=== PATIENT | male | born 1995 | race Two or more races ===

== ENCOUNTER 2020-08-04 07:50 | Outpatient (REF) | payer OTHER, SELFPAY ==
[2020-08-04 09:18] LABS: COVID-19 Test Negative (Negative); IDNOW Serial# 55D5AD1C
== END 2020-08-04 07:51 | disposition home or self-care (01) ==
LOC: HO.EMPCOV 07:50
PROVIDERS: PCP Internal Medicine; Visit Provider Internal Medicine
DX: Z20.828 Contact with and (suspected) exposure to other viral communicable diseases (principal)
CPT/HCPCS: 87635; C9803

== ENCOUNTER 2022-05-17 15:23 | Emergency (ER) | payer OTHER, SELFPAY ==
--- NOTE | ~2022-05-17 | XR_ITS ---
EXAMINATION: XR HAND, LEFT CLINICAL INFORMATION: Fourth/fifth finger crush injury COMPARISON: None TECHNIQUE: PA, lateral, and oblique views of the left hand. FINDINGS: Bones are normal anatomic alignment. I do not appreciate any displaced fracture seen. On the lateral view there is a suggestion of a tiny lucency possibly due to a prominent nutrient foramen along the dorsal basilar aspect of the fourth distal phalanx. This does not have the typical appearance of fracture. Incidental mild ulnar negative variance of the wrist. XR/XR hand LT min 3V IMPRESSION: No displaced fracture seen. Subtle lucency along the dorsal base of the fifth distal phalanx on the lateral film but this does not have the typical appearance for fracture. Clinical correlation for point tenderness in this region would be recommended.
[2022-05-17 16:51] VITALS: BP 114/62; PULSE 74; RESP 14; TEMP 36.3; O2SAT 99; BMI 19.5
--- NOTE | 2022-05-17 17:38 | ED_ITS ---
HPI - Extremity Problem General Chief complaint: Extremity Injury, Upper Stated complaint: left pinky finger swelling and bruised Time Seen by Provider: 05/17/22 17:32 Source: patient Mode of arrival: ambulatory Limitations: no limitations History of Present Illness HPI Narrative: 27 yo male right hand dominant here with left fifth finger pain swelling, redness after injury yesterday. He tells me he slammed his finger in a door. Related Data Previous Rx's Medication Instructions Recorded cephalexin 500 mg capsule 500 mg PO BID #14 caps 05/17/22 ibuprofen 600 mg tablet 600 mg PO Q6H PRN pain #20 tabs 05/17/22 Allergies Allergy/AdvReac Type Severity Reaction Status Date / Time No Known Allergies Allergy Unverified 05/22/20 16:51 [No Known Allergies*] Review of Systems Review of Systems: Yes all other systems are reviewed and are negative Constitutional: Constitutional: Reports no additional constitutional complaints, Denies body ache(s), Denies chills, Denies fever(s), Denies headache(s) and Denies weakness Eyes: Eyes: Reports no additional eye complaints and Denies change in vision ENT: Reports system reviewed and no additional complaints, except as documented, Denies dizziness, Denies headache(s), Denies nasal congestion, Denies nasal discharge and Denies neck pain Cardiovascular: Cardiovascular: Reports no additional cardiovascular complaints, Denies chest pain, Denies leg edema and Denies dyspnea Respiratory: Respiratory: Reports no additional respiratory complaints, Denies cough and Denies dyspnea Gastrointestinal: Gastrointestinal: Reports no additional gastrointestinal complaints, Denies abdominal pain, Denies diarrhea, Denies nausea and Denies vomiting Genitourinary: Genitourinary: Denies urinary incontinence Musculoskeletal: Musculoskeletal: Reports no additional musculoskeletal comp laints, Denies back pain, Reports arthralgias, Reports joint swelling, Reports limited range of motion, Denies neck pain, Denies numbness and Denies tingling Integumentary/Breasts: Skin/Breast: Reports system reviewed and no additional complaints, except as docu, Reports swelling, Reports erythema and Denies rash Neurologic: Reports system reviewed and no additional complaints, except as documented, Denies Abnormal speech present, Denies dizziness, Denies headache(s), Denies numbness, Denies tingling and Denies weakness FOR[facility]LY [facility] Past Medical History Attestation statement: The following information was validated with the patient. Source: old records reviewed and nursing notes reviewed Social History Social History Advance Directives: No Advance Directives Information Provided: No Physical Exam Vital Signs: Vital Signs: Last Vital Signs Temp 97.4 F 05/17/22 16:51 Pulse 74 05/17/22 16:51 Resp 14 05/17/22 16:51 BP 114/62 05/17/22 16:51 Pulse Ox 99 05/17/22 16:51 O2 Del Method 05/17/22 16:51 BMI result Body Mass Index 19.5 Const: General: cooperative, healthy appearing, comfortable and no acute distress Orientation/consciousness: patient oriented x3 Limitations: no limitations HEENT: Head: Yes normal to inspection Ears: hearing grossly normal bilaterally General nose exam: Normal external nose present Face and sinus: Yes normal facial exam Mouth: Normal oral and palatal mucosa present Throat: Yes posterior oropharynx normal Eyes: General: appearance normal, both eyes and all related structures Pupils: Equal, round and reactive pupils present Neck: Neck: Yes normal visual inspection Chest: Chest palpation & inspection: normal inspection of the chest Resp: Effort & Inspection: normal respiratory effort Auscultation: clear to auscultation bilaterally Cardio: Rate: regular rate Rhythm: regular rhythm Peripheral pulses: Peripheral pulses 2+ throughout GI: Inspection: Yes normal to inspection Palpation (GI): Soft to palpation and nontender Auscultation: normal bowel sounds Back/Spine/Pelvis: Thoracic/Lumbar Spine: thoracic and lumbar spine normal to inspection Skin: General skin exam: no rashes or lesions noted Neuro: General: patient oriented x3, no focal motor deficits and normal sensation to monofilament Cranial nerves: Yes Equal, round and reactive pupils present Cognition (Neuro): normal cognition Speech: No Abnormal speech present Gait exam (Neuro): Normal gait present Motor exam (neuro): 5/5 motor strength present throughout Extrem: Other: To the left hand fifth digit there is a subungal hematoma to the nailbed. There is an abrasion over the proximal nailbed with local erythema, swelling and tenderness. FROM Course Course Course Narrative: Left hand 5th digit crush injury with pain, swelling, redness There is a subungal hematoma however this is >24 hrs from injury so trephination not likely helpful. There is also an abrasion with local redness, swelling likely paronychia. Will start cephelexin X-rays shows ?Subtle lucency along the dorsal base of the fifth distal phalanx on the lateral film but this does not have the typical appearance for fracture. Clinical correlation for point tenderness in this region would be recommended. +point tenderness so ? small avulsion fx. Motrin/tylenol at home for pain. Reviewed worrisome signs symptoms of when to return to the emergency room. Comfortable discharge home. MDM - Extremity (Nontraumatic) Medical Records Attestation: I reviewed the patient's medical records. Lab Data Attestation: I reviewed the patient's lab results. Imaging Data left hand xray: Attestation: I personally reviewed and interpreted this imaging study as follows: Radiologist's impression: Launch?Image [address] [address] XRay Report Signed Patient: Jenaro Jones MR#: [id number] : 1995 Acct:[id number] Age/Sex: 27 / M ADM Date: 05/17/22 Loc: .ED Attending Dr: Ordering Physician: Brady ED Physician Date of Service: 05/17/22 Procedure(s): XR hand LT min 3V Accession Number(s): [id number] cc: Generic ED Physician~ EXAMINATION: XR HAND, LEFT CLINICAL INFORMATION: Fourth/fifth finger crush injury? COMPARISON: None? TECHNIQUE: PA, lateral, and oblique views of the left hand. FINDINGS: Bones are normal anatomic alignment. I do not appreciate any displaced fracture seen. On the lateral view there is a suggestion of a tiny lucency possibly due to a prominent nutrient foramen along the dorsal basilar aspect of the fourth distal phalanx. This does not have the typical appearance of fracture. Incidental mild ulnar negative variance of the wrist.? XR/XR hand LT min 3V IMPRESSION: No displaced fracture seen. Subtle lucency along the dorsal base of the fifth distal phalanx on the lateral film but this does not have the typical appearance for fracture. Clinical correlation for point tenderness in this region would be recommended. Discharge Plan Discharge Clinical Impression: Subungual hematoma of finger of left hand, Paronychia of finger, Finger fracture, left Patient Disposition: Home, Self-Care Instructions: Finger Fracture (ED), Paronychia (ED), Cellulitis (ED) Additional Instructions: Warm soaks and Epsom salt 4 times daily Prescriptions: New cephalexin 500 mg capsule 500 mg PO BID Qty: 14 0RF ibuprofen 600 mg tablet 600 mg PO Q6H PRN (Reason: pain) Qty: 20 0RF Referrals: Physician,Unknown J [Primary Care Provider] - Stand Alone Forms: Work/School Release Interventions: ED Discharge Assessment Last Done: 05/17/22 18:22 Discharge Date/Time: 05/17/22 18:22
[2022-05-17] MEDS: cephALEXin 500 MG CAPSULE PO (18:04)
[2022-05-17] MEDS: Ibuprofen 600 MG TABLET PO (18:04)
== END 2022-05-17 18:22 | disposition home or self-care (01) ==
PROVIDERS: Emergency Provider Internal Medicine
DX: S62.666A Nondisplaced fracture of distal phalanx of right little finger, initial encounter for closed fracture (principal); S60.152A Contusion of left little finger with damage to nail, initial encounter; W23.0XXA Caught, crushed, jammed, or pinched between moving objects, initial encounter; L03.012 Cellulitis of left finger; Y93.89 Activity, other specified; Y92.810 Car as the place of occurrence of the external cause; Y99.9 Unspecified external cause status
CPT/HCPCS: 73130; 99283

== ENCOUNTER 2022-05-28 02:36 | Outpatient (REF) | payer OTHER, SELFPAY ==
[2022-05-28 03:52] LABS: COVID-19 Test Negative (Negative); IDNOW Serial# 9DB6401D
== END 2022-05-28 02:37 | disposition home or self-care (01) ==
LOC: HO.LAB 02:36
PROVIDERS: Visit Provider Internal Medicine
DX: Z20.822 Contact with and (suspected) exposure to COVID-19 (principal)
CPT/HCPCS: 87635

== ENCOUNTER 2024-04-10 21:43 | Emergency (ER) | payer OTHER, SELFPAY ==
[2024-04-10 21:54] VITALS: BP 113/81; PULSE 90; RESP 16; TEMP 36.7; O2SAT 99; BMI 19.3
--- NOTE | 2024-04-10 22:50 | MHC.EDTECH ---
pt has about 1cm laceration on the back of the head. pt laceration cleaned with sterile water and gauze. no bleeding at this time. pt tolerated well. pt waiting for provider
[2024-04-10 23:24] VITALS: PULSE 61; RESP 17; O2SAT 100
--- NOTE | 2024-04-10 23:25 | ED.HEATRA ---
HPI - Head Injury General Chief complaint: Head Injury Stated complaint: Hit head on metal object Time Seen by Provider: 04/10/24 22:51 Source: patient Mode of arrival: ambulatory Limitations: no limitations History of Present Illness HPI Narrative: Patient is a 28-year-old male who presents emergency department for evaluation after an accidental head injury. He was at a [employer] park at approximately 20:50 this evening when he was jumping he struck his head posteriorly on a metal bar resulting in a fall supine. There was no loss of consciousness when this occurred. He denies use of any blood thinners or known coagulation disorders. He had active bleeding after this occurred. He felt a little lightheaded at that time but this has since resolved. Denies headache, vision changes, neck pain, dizziness, numbness or tingling of his extremities, bladder bowel dysfunction, saddle paresthesias. Related Data Previous Rx's ?Medication ?Instructions ?Recorded cephalexin 500 mg capsule 500 mg PO BID #14 caps 05/17/22 ibuprofen 600 mg tablet 600 mg PO Q6H PRN pain #20 tabs 05/17/22 Allergies Allergy/AdvReac Type Severity Reaction Status Date / Time No Known Allergies Allergy Verified 04/10/24 21:54 [No Known Allergies*] Review of Systems Review of Systems: Yes all other systems are reviewed and are negative PMFSH Past Medical History Attestation statement: The following information was validated with the patient. Source: old records reviewed Social History Social History Advance Directives: No Advance Directives Information Provided: No Do you have a plan to hurt others: No Plan Physical Exam Vital Signs: Vital Signs: Last Vital Signs Temp 98.0 F 04/10/24 21:54 Pulse 90 04/10/24 21:54 Resp 16 04/10/24 21:54 BP 113/81 04/10/24 21:54 Pulse Ox 99 04/10/24 21:54 O2 Del Method Room Air 04/10/24 21:54 BMI result Body Mass Index 19.3 Appearance: Alert.?Oriented to person, place and time. No acute distress.?Normal affect. Head: Normocephalic. 1 cm occipital scalp black, scant active bleeding, edges well approximated Eyes: Pupils equal, round and reactive to light. EOMI. Conjunctiva and sclera normal? No Patton sign noted. No raccoon eyes noted ENT: No septal hematoma, nares patent bilaterally. External auditory canal normal tympanic membrane pearly holman and intact bilaterally. Dentition normal, no fractured teeth. No lesions or lacerations of oropharynx. Uvula midline. Moist mucous membranes. Neck: Normal inspection.? Neck supple.??No palpable tenderness, step-off, deformities. CVS: Heart sounds normal. Normal heart rate and rhythm.? Pulses normal.?? Respiratory: No respiratory distress.? Lung sounds clear to auscultation bilaterally?? Abdomen: Soft and non-tender. Normoactive bowel sounds. ?? Skin: Skin warm and dry.? Normal skin color.? ?? Extremities: No lower extremity edema.? Neuro: Moves all extremities spontaneously. Sensation intact bilaterally. CN II-XII intact. No focal neuro deficits. Medical Decision Making Medical Decision Making MDM Narrative: Patient is a 28-year-old male who presents to the emergency department for evaluation after head injury without loss of consciousness and a scalp laceration. He is overall well-appearing, nontoxic, has no focal neurological deficits on evaluation. His scalp laceration was cleansed extensively with Betadine and saline, irrigated with syringe. Closure with 2 ezekiel, instructed on timing for removal and appropriate care. [place] CT head rule without indication for CT at this time, unlikely to have ICH, SDH, skull fracture. Advised outpatient follow-up with his primary care provider, worrisome signs and symptoms that would warrant re-evaluation in the emergency department. Tdap was updated today as he was unaware of the date of his last tetanus vaccination. Stable for discharge Differential Diagnosis Differential Diagnoses: The differential diagnosis associated with the presentation includes (See narrative above) Independent Historian Clinical information obtained from an independent historian. History obtained from or confirmed by: Spouse (Present who confirms history) Tests considered The following testing was considered but not selected: CT head deferred, see narrative above Prescription Management I considered prescription management with: Pain Medication (Acetaminophen/ibuprofen) Discharge Plan Discharge Clinical Impression: Concussion without loss of consciousness Qualifiers: Encounter type: initial encounter Qualified Code(s): S06.0X0A - Concussion without loss of consciousness, initial encounter Laceration of scalp Qualifiers: Encounter type: initial encounter Qualified Code(s): S01.01XA - Laceration without foreign body of scalp, initial encounter Patient Disposition: Home, Self-Care Instructions: Laceration (ED), Concussion (ED) Additional Instructions: Do not rub ezekiel, keep clean, dry, you may apply bacitracin or Neosporin at home.? If area begins look infected please return to the emergency department You can take ibuprofen 200 mg, 3 tablets (600mg) every 6-8 hours as needed for pain, in addition to Tylenol 500 mg, 2 tablets (1,000mg) every 4-6 hours as needed for pain, but not to exceed 3 doses daily (3,000mg).? If you develop new or worsening symptoms or concerns you may return back to emergency department for evaluation Return to the emergency department or follow-up with your primary care doctor for staple removal in 7-10 days. Prescriptions: No Action cephalexin 500 mg capsule 500 mg PO BID Qty: 14 0RF ibuprofen 600 mg tablet 600 mg PO Q6H PRN (Reason: pain) Qty: 20 0RF Referrals: Aman Baker III, MD [Primary Care Provider] - Print Language: Yoruba
[2024-04-10] MEDS: Diphth,Pertus(ACell),Tet Adult 0.5 ML SYRINGE IM (23:47)
[2024-04-10 23:49] VITALS: BP 120/62; PULSE 61; RESP 17; TEMP 37.1; O2SAT 100
== END 2024-04-10 23:50 | disposition home or self-care (01) ==
PROVIDERS: Emergency Provider Internal Medicine; PCP Internal Medicine
DX: S01.01XA Laceration without foreign body of scalp, initial encounter (principal); S06.0X0A Concussion without loss of consciousness, initial encounter; W22.8XXA Striking against or struck by other objects, initial encounter; Y93.44 Activity, trampolining; Y92.89 Other specified places as the place of occurrence of the external cause; Y99.9 Unspecified external cause status; Z23 Encounter for immunization
CPT/HCPCS: 90471; 90715; 99283; 99284

== ENCOUNTER 2024-04-17 11:37 | Emergency (ER) | payer OTHER, SELFPAY ==
[2024-04-17 11:57] VITALS: BP 102/65; PULSE 62; RESP 16; TEMP 36.8; O2SAT 97; BMI 19.5
--- NOTE | 2024-04-17 11:57 | ED_ITS ---
HPI - Wound/Laceration General Chief Complaint: Wound/Laceration Stated Complaint: stitch removal Time Seen by Provider: 04/17/24 11:57 Source: patient Mode of arrival: ambulatory Limitations: no limitations History of Present Illness ED Provider: Cindy Ponce PA-C HPI narrative: 20-year-old male presents to the ER for evaluation of his head laceration that was sustained 1 week while trampoline park. He required 2 ezekiel to the back of his scalp for laceration. He denies any associated pain, bleeding, drainage. He feels some scabbing to the area but has no complaints or concerns about the healing. He is wondering if things get the ezekiel out today Location: scalp Associated symptoms: none Related Data Previous Rx's ?Medication ?Instructions ?Recorded cephalexin 500 mg capsule 500 mg PO BID #14 caps 05/17/22 ibuprofen 600 mg tablet 600 mg PO Q6H PRN pain #20 tabs 05/17/22 Allergies Allergy/AdvReac Type Severity Reaction Status Date / Time No Known Allergies Allergy Verified 04/17/24 11:58 [No Known Allergies*] Review of Systems Review of Systems: Yes all other systems are reviewed and are negative [facility] Social History Social History Advance Directives: No Do you have a plan to hurt others: No Plan Physical Exam Vital Signs: Vital Signs: Last Vital Signs Temp 98.2 F 04/17/24 12:08 Pulse 62 04/17/24 12:08 Resp 16 04/17/24 12:08 BP 102/65 04/17/24 12:08 Pulse Ox 97 04/17/24 12:08 O2 Del Method Room Air 04/17/24 12:08 BMI result Body Mass Index 19.5 Appearance: Alert. Oriented X3. No acute distress. HEENT: normal external inspection. Posterior scalp in the occipital region with a small approximately 1.5 cm appropriately healing laceration with [address], wound appears to be healing appropriately with no dehiscence or drainage. CVS: Normal heart rate and rhythm. Pulses normal. Respiratory: No respiratory distress. Skin: Skin warm and dry. Normal skin color. Normal skin turgor. No rashes. Extremities: Normal inspection x4, no joint swelling Neuro: Oriented X 3. Grossly normal, nonfocal Medical Decision Making Medical Decision Making MDM Narrative: 20-year-old male presents the ER for evaluation of a head laceration sustained 1 week ago requiring 2 ezekiel. He is wondering if the ezekiel can be removed today. Wound was examined and seems to be healing appropriately 2 ezekiel were removed in triage and tape patient is stable for discharge home. Wound care was discussed with the patient Differential Diagnosis Differential Diagnoses: The differential diagnosis associated with the presentation includes Appropriate wound healing, delayed wound healing, wound infection External Record Review External record reviewed: Outpatient record and Prior outpatient labs Procedures Procedure Narrative Procedure Narrative: Posterior scalp wound was cleaned with alcohol and 2 ezekiel were removed using staple remover. Wound appears well approximated without any dehiscence, bleeding, evidence of infection. Patient tolerated well Critical Care Time Critical Care Time Critical Care Time: No Discharge Plan Discharge Clinical Impression: Laceration of head Qualifiers: Encounter type: subsequent encounter Location of open wound of head: scalp Foreign body presence: without foreign body Qualified Code(s): S01.01XD - Laceration without foreign body of scalp, subsequent encounter Patient Disposition: Home, Self-Care Instructions: Head Laceration (ED) Additional Instructions: You can wash your hair as usual now. Do not get a haircut for another week If you have bleeding from the area hold pressure for at least 10 minutes If you develop new or worsening symptoms call 911 or come back to the ER for further evaluation. Prescriptions: No Action cephalexin 500 mg capsule 500 mg PO BID Qty: 14 0RF ibuprofen 600 mg tablet 600 mg PO Q6H PRN (Reason: pain) Qty: 20 0RF Interventions: ED Discharge Assessment Last Done: 04/17/24 12:08 Discharge Date/Time: 04/17/24 12:10 Print Language: [place]serrat[place]
[2024-04-17 12:08] VITALS: BP 102/65; PULSE 62; RESP 16; TEMP 36.8; O2SAT 97
== END 2024-04-17 12:10 | disposition home or self-care (01) ==
PROVIDERS: Emergency Provider Emergency Medicine; PCP Internal Medicine
DX: Z48.02 Encounter for removal of sutures (principal)
CPT/HCPCS: 99282; 99284